=== PATIENT | female | born 1965 ===

== ENCOUNTER 2016-08-18 08:56 | Day surgery (SDC) | payer OTHER ==
[2016-08-16 09:18] VITALS: BMI 22.4
[2016-08-18] MEDS ORDERED: Propofol 10 mg/ml Inj (20 ML) ONE (12:31)
[2016-08-18] MEDS ORDERED: Phenylephrine 10 mg/ml Inj ONE (12:37)
[2016-08-18 14:08] VITALS: BP 106/59; PULSE 67; RESP 12; TEMP 97.4; O2SAT 99
== END 2016-08-18 14:05 | disposition home or self-care (01) ==
LOC: C.ENDO 08:56
PROVIDERS: ATTEND Internal Medicine Gastroenterology
DX: Z12.11 Encounter for screening for malignant neoplasm of colon (principal); D12.2 Benign neoplasm of ascending colon; D12.4 Benign neoplasm of descending colon; D12.5 Benign neoplasm of sigmoid colon; K64.1 Second degree hemorrhoids
CPT/HCPCS: 45380; 45385; 82948; 88305; J2001; J2370; J2704

== ENCOUNTER 2018-04-25 10:47 | Outpatient (CLI) | payer OTHER | END 2018-04-25 10:48 | disposition home or self-care (01) | LOC: C.MAMMO 10:47 | DX: Z12.31 Encounter for screening mammogram for malignant neoplasm of breast (principal) ==